=== PATIENT | female | born 1990 | race Caucasian/White ===

== ENCOUNTER 2019-02-06 08:08 | Emergency (ER) | payer BC ==
[2019-02-06 08:48] VITALS: BP 117/69
--- NOTE | 2019-02-06 09:01 | UC ---
Throat Pain/Nasal Hakeem HPI - HPI Summary HPI Summary: sore throat x 1 day pain is 6 out of 10 , better with Tylenol, worse with eating + fever, chills, body aches, no cough , no runny nose concern about strep throat - History of Current Complaint Chief Complaint: UCRespiratory Stated Complaint: SORE THROAT Time Seen by Provider: 02/06/19 08:45 Hx Obtained From: Patient Hx Last Menstrual Period: 02/03/19 ?: No Onset/Duration: Gradual Onset, Lasting Days - 1, Still Present Severity: Moderate Pain Intensity: 6 Cough: None Associated Signs & Symptoms: Positive: Fever. Negative: Sinus Discomfort, Nasal Discharge, Vomiting, Rash - Allergies/Home Medications Allergies/Adverse Reactions: Allergies Allergy/AdvReac Type Severity Reaction Status Date / Time No Known Allergies Allergy Verified 02/06/19 08:37 Home Medications: Home Medications Cyclobenzaprine TAB* [Flexeril 10 MG TAB*] 5 mg PO DAILY 02/06/19 [History Confirmed 02/06/19] Montelukast Sodium TAB* [Singulair TAB*] 10 mg PO DAILY 02/06/19 [History Confirmed 02/06/19] Sertraline* [Zoloft*] 25 mg PO BEDTIME 02/06/19 [History Confirmed 02/06/19] PMH/Surg Hx/FS Hx/Imm Hx Respiratory History: Asthma Psychological History: Depression, Post Traumatic Stress Disorder - Surgical History Surgical History: None - Family History Known Family History: Positive: None, Respiratory Disease - Social History Alcohol Use: Occasionally Substance Use Type: None Smoking Status (MU): Former Smoker Type: Cigarettes Amount Used/How Often: 1/2 - 1 ppd Length of Time of Smoking/Using Tobacco: 10 yrs Have You Smoked in the Last Year: Yes When Did the Patient Quit Smoking/Using Tobacco: mar 2018 Household Exposure Type: Cigarettes - Immunization History Most Recent Influenza Vaccination: Not the 2014/2015 Season Review of Systems All Other Systems Reviewed And Are Negative: Yes Constitutional: Positive: Fever, Chills, Fatigue Skin: Positive: Negative Eyes: Positive: Negative ENT: Positive: Sore Throat. Negative: Nasal Discharge Respiratory: Negative: Cough Is Patient Immunocompromised?: No Physical Exam Triage Information Reviewed: Yes Appearance: Well-Appearing, No Pain Distress, Well-Nourished Vital Signs: Initial Vital Signs Temp 98.6 F 02/06/19 08:42 Pulse 83 02/06/19 08:42 Resp 16 02/06/19 08:42 BP 117/69 02/06/19 08:42 Pulse Ox 99 02/06/19 08:42 Vital Signs Reviewed: Yes Eye Exam: Normal Eyes: Positive: Conjunctiva Clear ENT: Positive: Normal ENT inspection, Hearing grossly normal, Pharyngeal erythema, TMs normal, Tonsillar swelling. Negative: Nasal congestion, Nasal drainage, TM bulging, TM dull, TM red, Tonsillar exudate Neck: Positive: Supple, Nontender, No Lymphadenopathy Respiratory: Positive: Chest non-tender, Lungs clear, Normal breath sounds Cardiovascular: Positive: RRR, No Murmur, Pulses Normal Abdominal Exam: Normal Throat Pain/Nasal Course/Dx - Differential Dx/Diagnosis Provider Diagnosis: Strep pharyngitis Discharge ED - Sign-Out/Discharge Documenting (check all that apply): Patient Departure All imaging exams completed and their final reports reviewed: No Studies - Discharge Plan Condition: Stable Disposition: HOME Prescriptions: Amoxicillin PO (*) [Amoxicillin 875 MG (*)] 875 mg PO BID #20 tab Patient Education Materials: Strep Throat (ED) Referrals: Alycia Huntley [Primary Care Provider] - If Needed - Billing Disposition and Condition Condition: STABLE Disposition: Home
== END 2019-02-06 09:19 | disposition home or self-care (01) ==
LOC: UCCORT 08:08
DX: J02.0 Streptococcal pharyngitis (principal); J45.909 Unspecified asthma, uncomplicated; R53.83 Other fatigue; F32.9 Major depressive disorder, single episode, unspecified; Z79.899 Other long term (current) drug therapy; Z87.891 Personal history of nicotine dependence
CPT/HCPCS: 87651; 99212; G0463